=== PATIENT | male | born 1985 | race Caucasian/White ===

== ENCOUNTER 2018-05-26 06:03 | Day surgery (SDC) | payer OTHER ==
[2018-05-26] MEDS ORDERED: LACTATED RINGER'S 1,000 ML IV (07:00)
[2018-05-26] MEDS ORDERED: MIDAZOLAM 1 MG/ML 2 ML INJ (07:10)
[2018-05-26] MEDS ORDERED: ROPIVACAINE 0.5 % 30 ML VIAL (08:01)
[2018-05-26] MEDS: POLYMYXIN/BACITRACIN 1L IRRIG ×2 (08:20→10:30)
[2018-05-26] MEDS ORDERED: morphine 10 MG INJ (10:22)
[2018-05-26] MEDS ORDERED: ROCURONIUM 50 MG INJ (10:53)
[2018-05-26] MEDS ORDERED: PROPOFOL 20 ML (10:53)
[2018-05-26] MEDS ORDERED: LIDOCAINE 2% (SDV) 5 ML INJ (10:53)
[2018-05-26] MEDS ORDERED: ONDANSETRON 4 MG INJ (10:54)
[2018-05-26] MEDS ORDERED: CEFAZOLIN 1 GM INJ (10:55)
[2018-05-26] MEDS: GELATIN SIZE 100 SPONGE (11:05)
[2018-05-26] MEDS: ROPIVACAINE 0.5 % 30 ML VIAL (11:05)
[2018-05-26] MEDS: THROMBIN 5000 UNIT VIAL (11:06)
[2018-05-26] MEDS: POVIDONE IODINE 10% 28.4 GM OINT (11:06)
[2018-05-26] MEDS ORDERED: SOD CHLORIDE 0.9% 1,000 ML IV (11:42)
[2018-05-26] MEDS ORDERED: FENTAnyl 50 MCG/ML VIAL IV (12:00)
[2018-05-26] MEDS ORDERED: OXYCODONE/ACETAMINOPHEN (5/325) TAB PO ×2 (12:00)
[2018-05-26] MEDS ORDERED: morphine 2 MG INJ IV (12:00)
[2018-05-26] MEDS ORDERED: HYDROmorphONE 1 MG/5 ML IV SYRINGE IV ×2 (12:00)
[2018-05-26] MEDS ORDERED: NALOXONE (0.4 MG/ML) INJ IV (12:00)
[2018-05-26] MEDS ORDERED: MEPERIDINE 25 MG INJ IV (12:00)
[2018-05-26] MEDS ORDERED: ONDANSETRON 4 MG INJ IV (12:00)
[2018-05-26] MEDS ORDERED: DIPHENHYDRAMINE 50 MG INJ IV (12:00)
[2018-05-26] MEDS: ONDANSETRON 4 MG INJ IV (12:57)
[2018-05-26] MEDS: METOCLOPRAMIDE 10 MG INJ IV (13:31)
== END 2018-05-26 14:29 | disposition home or self-care (01) ==
LOC: SDS 06:03
DX: M19.072 Primary osteoarthritis, left ankle and foot (principal); M93.872 Other specified osteochondropathies, left ankle and foot
CPT/HCPCS: 28715; 73610